=== PATIENT | female | born 1975 | race Caucasian/White ===

== ENCOUNTER 2016-10-13 17:12 | Emergency (ER) | payer OTHER ==
[~2016-10-13] VITALS: Ht 154.9 cm; Wt 70.0 kg
[2016-10-13 17:13] VITALS: BP 143/81; PULSE 84; RESP 16; TEMP 98.1; O2SAT 99
[2016-10-13] MEDS ORDERED: SODIUM CHLOR 0.9% 1000 ML INJ 1,000 ML IV SCH (17:29)
[2016-10-13] MEDS ORDERED: MORPHINE SULFATE 4 MG/ML INJ IV PUSH ONE ×2 (17:30→18:30)
[2016-10-13] MEDS ORDERED: ONDANSETRON HCL 4 MG/2 ML VIAL IVP ONE (17:30)
[2016-10-13] MEDS ORDERED: OMEP40CA2 PO (17:33)
[2016-10-13] MEDS ORDERED: CYCL1TAB29 PO (17:33)
[2016-10-13] MEDS ORDERED: LOSA100T PO (17:33)
[2016-10-13 18:11] LABS: AUTOMATED NEUTROPHIL # 2.7 TH/MM3 (1.8-7.7); BASOPHIL % 0.6 % (0.0-2.0); EOSINOPHIL # 0.1 TH/MM3 (0-0.4); HEMATOCRIT 36.8 % (35.0-46.0); HEMO FLAGS DIFF FINAL; LYMPH % 40.6 % (9.0-44.0); LYMPHOCYTE # 2.2 TH/MM3 (1.0-4.8); MEAN CELL VOLUME 91.9 FL (80.0-100.0); MEAN CORPUSCULAR HEMOGLOBIN 31.2 PG (27.0-34.0); MONO % 5.9 % (0.0-8.0); NEUT % 50.9 % (16.0-70.0); PLATELET COUNT 186 TH/MM3 (150-450); RED CELL DISTRIBUTION WIDTH 12.9 % (11.6-17.2); WHITE BLOOD COUNT 5.3 TH/MM3 (4.0-11.0)
--- NOTE | 2016-10-13 18:32 | PD ---
HPI Chief Complaint: Abdominal Pain Time Seen by Provider: 18:28 Travel History International Travel<30 days: No Contact w/Intl Traveler<30days: No Traveled to known affect area: No History of Present Illness HPI 41-year-old female that presents to the ED for evaluation of right upper quadrant pain. Per patient she's had that since today. Per patient is severe. Per patient nothing makes it better or worse. Per patient she did have her gallbladder removed about 2 months ago [facility]. She denies any other surgeries. No fevers chills or sweats. No bowel movement or urinary symptoms. She states that she feels nauseous and has vomited. Per patient she also had a syncopal episode of unclear etiology and she hit her head. She denies any other injury. No blood thinner use. She states her pain is sharp and is 7 out of 10. No other medical issues at this time. PFSH Past Medical History Cerebrovascular Accident: Yes (tia) Hypertension: Yes Respiratory: Yes (asthma) Influenza Vaccination: No ?: Not LMP: 09/20/2016 (IUD) Past Surgical History Abdominal Surgery: Yes (GASTRIC BYPASS / PERFORATED ULCER REPAIR) Appendectomy: Yes Cholecystectomy: Yes Ear Surgery: Yes (TUBES PLACED (1979)) Social History Alcohol Use: Yes (OCCASIONALLY) Tobacco Use: Yes Substance Use: No Allergies-Medications (Allergen,Severity, Reaction): Coded Allergies: Avelox (Verified Allergy, Severe, RESPIRATORY DISTRESS, 10/13/16) HMG-CoA Reductase Inhibitors (Verified Allergy, Severe, SEVERE MYALGIA, ) Nonsteroidal Anti-Inflammatory Agts (Verified Allergy, Severe, 10/13/16) Tetanus Toxoid (Verified Allergy, Severe, SYNCOPE / RESPIRATORY, 10/13/16) Tramadol (Verified Allergy, Severe, 10/13/16) Reported Meds & Prescriptions Reported Meds & Active Scripts Active Reported Omeprazole 40 Mg Cap 40 Mg PO BID Flexeril (Cyclobenzaprine HCl) 10 Mg Tab 10 Mg PO BID Losartan (Losartan Potassium) 100 Mg Tab 100 Mg PO DAILY Review of Systems Except as stated in HPI: all other systems reviewed are Neg Physical Exam Narrative GENERAL: SKIN: Warm and dry. HEAD: Atraumatic. Normocephalic. EYES: Pupils equal and round. No scleral icterus. No injection or drainage. ENT: No nasal bleeding or discharge. Mucous membranes pink and moist. Tongue is midline. No uvula deviation. NECK: Trachea midline. No JVD. CARDIOVASCULAR: Regular rate and rhythm. No murmurs, S3, S4. RESPIRATORY: No accessory muscle use. Clear to auscultation. Breath sounds equal bilaterally. GASTROINTESTINAL: Abdomen soft, tender to palpation on the right upper quadrant , nondistended. Hepatic and splenic margins not palpable. MUSCULOSKELETAL: Extremities without clubbing, cyanosis, or edema. No obvious deformities. Full range of motion of the upper and lower extremities bilaterally. 2+ pulses bilaterally. NEUROLOGICAL: Awake and alert. No obvious cranial nerve deficits. Motor grossly within normal limits. Five out of 5 muscle strength in the arms and legs. Normal speech. PSYCHIATRIC: Appropriate mood and affect; insight and judgment normal. Data Data Last Documented VS Vital Signs Date Time Temp Pulse Resp B/P Pulse Ox O2 Delivery O2 Flow Rate FiO2 10/13/16 18:47 77 16 138/82 100 Room Air 10/13/16 17:13 98.1 Orders Complete Blood Count With Diff (10/13/16 17:29) Comprehensive Metabolic Panel (10/13/16 17:29) Lipase (10/13/16 17:29) Lactic Acid (10/13/16 17:29) Urinalysis - C+S If Indicated (10/13/16 17:29) Ct Abd/Pel W Iv Contrast(Rout) (10/13/16 17:29) Iv Access Insert/Monitor (10/13/16 17:29) Ecg Monitoring (10/13/16 17:29) Oximetry (10/13/16 17:29) Morphine Inj (Morphine Inj) (10/13/16 17:30) Ondansetron Inj (Zofran Inj) (10/13/16 17:30) Sodium Chlor 0.9% 1000 Ml Inj (Ns 1000 M (10/13/16 17:29) Ct Brain W/O Iv Contrast(Rout) (10/13/16 ) Electrocardiogram (10/13/16 ) Morphine Inj (Morphine Inj) (10/13/16 18:30) Iohexol 350 Inj (Omnipaque 350 Inj) (10/13/16 19:42) Labs Laboratory Tests Test 10/13/16 17:36 White Blood Count 5.3 TH/MM3 Red Blood Count 4.00 MIL/MM3 Hemoglobin 12.5 GM/DL Hematocrit 36.8 % Mean Corpuscular Volume 91.9 FL Mean Corpuscular Hemoglobin 31.2 PG Mean Corpuscular Hemoglobin 34.0 % Concent Red Cell Distribution Width 12.9 % Platelet Count 186 TH/MM3 Mean Platelet Volume 9.0 FL Neutrophils (%) (Auto) 50.9 % Lymphocytes (%) (Auto) 40.6 % Monocytes (%) (Auto) 5.9 % Eosinophils (%) (Auto) 2.0 % Basophils (%) (Auto) 0.6 % Neutrophils # (Auto) 2.7 TH/MM3 Lymphocytes # (Auto) 2.2 TH/MM3 Monocytes # (Auto) 0.3 TH/MM3 Eosinophils # (Auto) 0.1 TH/MM3 Basophils # (Auto) 0.0 TH/MM3 CBC Comment DIFF FINAL Differential Comment Sodium Level 139 MEQ/L Potassium Level 3.9 MEQ/L Chloride Level 106 MEQ/L Carbon Dioxide Level 23.9 MEQ/L Anion Gap 9 MEQ/L Blood Urea Nitrogen 13 MG/DL Creatinine 0.71 MG/DL Estimat Glomerular Filtration 90 ML/MIN Rate Random Glucose 103 MG/DL Lactic Acid Level 1.8 mmol/L Calcium Level 7.6 MG/DL Total Bilirubin 0.3 MG/DL Aspartate Amino Transf 22 U/L (AST/SGOT) Alanine Aminotransferase 30 U/L (ALT/SGPT) Alkaline Phosphatase 96 U/L Total Protein 6.2 GM/DL Albumin 3.5 GM/DL Lipase 110 U/L MDM Medical Decision Making Medical Screen Exam Complete: Yes Emergency Medical Condition: Yes Medical Record Reviewed: Yes Interpretation(s) CBC & BMP Diagram 10/13/16 17:36 LFTs and lipase within normal limits. Last Impressions Abdomen/Pelvis CT 10/13/16 1729 Signed Impressions: Service Date/Time: Thursday, October 13, 2016 19:24 - CONCLUSION: No acute findings. Small hiatus hernia and evidence of prior gastric surgery. Cedrick Reid MD Head CT 10/13/16 0000 Signed Impressions: Service Date/Time: Thursday, October 13, 2016 19:19 - CONCLUSION: Negative noncontrast CT brain. Cedrick Reid MD Differential Diagnosis Abdominal pain versus right upper quadrant pain versus obstruction versus syncope versus head injury versus gastritis versus gastritis versus pancreatitis Narrative Course 41-year-old female that presents to the ED for eval a upper quadrant pain and syncope. Patient was properly examined and was found to have signs and symptoms of unclear etiology at this time. Labs and imaging were ordered. Patient was given IV pain meds. Labs and imaging showed negative for acute disease. My attending Dr. Olivares evaluated the patient with me and recommends that if everything comes back negative patient can be safely discharged home with pain medication and follow-up with his doctor. Patient was rib and does feel improved. Labs and imaging were essentially unremarkable. Told to follow with GI doctor. See ED worsening symptoms. Diagnosis Primary Impression: RUQ abdominal pain Patient Instructions: General Instructions, Narcotic given in the ED Additional Instructions: Take medications as prescribed. Follow-up with PCP. See ED for any worsening symptoms. Do not drink or drive while taking pain medication. Apply ice or heat as needed for pain Med/Other Pt SpecificInfo: Prescription(s) given Scripts Ondansetron (Zofran)4 Mg Tab4 Mg PO Q6HR PRN (NAUSEA OR VOMITING) #20 TAB Prov:Chuy Olivares MD 10/13/16 Hydrocodone-Acetaminophen (Lortab)10-325 Mg Tab1 Tab PO Q6H PRN (PAIN) #20 TAB Ref 0 Prov:Chuy Olivares MD 10/13/16 Disposition: 01 DISCHARGE HOME Condition: Stable Wenceslao Cruz Oct 13, 2016 18:32
[2016-10-13 18:34] LABS: ALT (GPT) 30 U/L (10-53)
[2016-10-13 18:37] LABS: ALKALINE PHOSPHATASE 96 U/L (45-117); TOTAL BILIRUBIN ADULT 0.3 MG/DL (0.2-1.0)
--- NOTE | 2016-10-13 18:38 | PD ---
Data Data Last Documented VS Vital Signs Date Time Temp Pulse Resp B/P Pulse Ox O2 Delivery O2 Flow Rate FiO2 10/13/16 17:13 98.1 84 16 143/81 99 Orders Complete Blood Count With Diff (10/13/16 17:29) Comprehensive Metabolic Panel (10/13/16 17:29) Lipase (10/13/16 17:29) Lactic Acid (10/13/16 17:29) Urinalysis - C+S If Indicated (10/13/16 17:29) Ct Abd/Pel W Iv Contrast(Rout) (10/13/16 17:29) Iv Access Insert/Monitor (10/13/16 17:29) Ecg Monitoring (10/13/16 17:29) Oximetry (10/13/16 17:29) Morphine Inj (Morphine Inj) (10/13/16 17:30) Ondansetron Inj (Zofran Inj) (10/13/16 17:30) Sodium Chlor 0.9% 1000 Ml Inj (Ns 1000 M (10/13/16 17:29) Ct Brain W/O Iv Contrast(Rout) (10/13/16 ) Electrocardiogram (10/13/16 ) Morphine Inj (Morphine Inj) (10/13/16 18:30) Labs Laboratory Tests Test 10/13/16 17:36 White Blood Count 5.3 TH/MM3 Red Blood Count 4.00 MIL/MM3 Hemoglobin 12.5 GM/DL Hematocrit 36.8 % Mean Corpuscular Volume 91.9 FL Mean Corpuscular Hemoglobin 31.2 PG Mean Corpuscular Hemoglobin 34.0 % Concent Red Cell Distribution Width 12.9 % Platelet Count 186 TH/MM3 Mean Platelet Volume 9.0 FL Neutrophils (%) (Auto) 50.9 % Lymphocytes (%) (Auto) 40.6 % Monocytes (%) (Auto) 5.9 % Eosinophils (%) (Auto) 2.0 % Basophils (%) (Auto) 0.6 % Neutrophils # (Auto) 2.7 TH/MM3 Lymphocytes # (Auto) 2.2 TH/MM3 Monocytes # (Auto) 0.3 TH/MM3 Eosinophils # (Auto) 0.1 TH/MM3 Basophils # (Auto) 0.0 TH/MM3 CBC Comment DIFF FINAL Differential Comment Alanine Aminotransferase 30 U/L (ALT/SGPT) [facility] Supervised Visit with RAMON: Yes Narrative Course The history, exam, and medical decision-making in the associated mid-level provider note were completed with my assistance. I reviewed and agree with the findings presented. I attest that I had a [id number] encounter with the patient on the same day, and personally performed and documented my assessment and findings in the medical record. *My assessment and Findings: 41 year-old woman history of chronic right upper quadrant abdominal pain. Status post cholecystectomy 2 months ago for sounds like biliary dyskinesia. 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 The pain she has now is similar to pain that she had prior to having her cholecystectomy. She had an ultrasound done at week or so ago. As far she knows it was normal. She is following up with her surgeon because she still is having ongoing pain issues. We'll get a CT scan to make sure she is not in any evidence of abscess or complication from the procedure but I think this is unlikely. Patient likely with acute on chronic ongoing abdominal pain similar to before her surgery. Chuy lOivares MD Oct 13, 2016 18:38
[2016-10-13 18:47] VITALS: BP 138/82; PULSE 77; RESP 16; O2SAT 100
[2016-10-13 18:49] LABS: ANION GAP 9 MEQ/L (5-15); AST (GOT) 22 U/L (15-37); BICARBONATE 23.9 MEQ/L (21.0-32.0); BLOOD UREA NITROGEN 13 MG/DL (7-18); CHLORIDE 106 MEQ/L (98-107); GLOMERULAR FILTRATION RATE 90 ML/MIN (>89); POTASSIUM 3.9 MEQ/L (3.5-5.1); SODIUM (NA) 139 MEQ/L (136-145)
--- NOTE | 2016-10-13 19:40 | RADRPT ---
EXAM DATE/TIME: 10/13/2016 19:19 [facility] COMPARISON: No previous studies available for comparison. INDICATIONS : Fell hit head,syncopal episode RADIATION DOSE: 38.16 CTDIvol (mGy) MEDICAL HISTORY : Hypertension. Ulcers. SURGICAL HISTORY : Gastric bypass. Cholecystectomy.Ulcer repair ENCOUNTER: Initial ACUITY: 2 days PAIN SCALE: 7/10 LOCATION: cranial TECHNIQUE: Multiple contiguous axial images were obtained of the head. Using automated exposure control and adj ustment of the mA and/or kV according to patient size, radiation dose was kept as low as reasonably a chievable to obtain optimal diagnostic quality images. DICOM format image data is available electro nically for review and comparison. FINDINGS: CEREBRUM: The ventricles are normal for age. No evidence of midline shift, mass lesion, hemorrhage or acute in farction. No extra-axial fluid collections are seen. POSTERIOR FOSSA: The cerebellum and brainstem are intact. The 4th ventricle is midline. The cerebellopontine angle i s unremarkable. EXTRACRANIAL: The visualized portion of the orbits is intact. SKULL: The calvaria is intact. No evidence of skull fracture. CONCLUSION: Negative noncontrast CT brain. Cedrick Reid MD on October 13, 2016 at 19:37 Board Certified Radiologist. This report was verified electronically.
[2016-10-13] MEDS ORDERED: IOHEXOL 350 MG/ML 10 ML VIAL (for RAD DIAG) IV ONE (19:42)
--- NOTE | 2016-10-13 19:55 | RADRPT ---
EXAM DATE/TIME: 10/13/2016 19:24 [facility] COMPARISON: No previous studies available for comparison. INDICATIONS : Right upper abdomen pain IV CONTRAST: 81 cc Omnipaque 350 (iohexol) IV ORAL CONTRAST: No oral contrast ingested. RADIATION DOSE: 10.63 CTDIvol (mGy) MEDICAL HISTORY : Hypertension. Ulcers. SURGICAL HISTORY : Gastric bypass. Cholecystectomy.Ulcer repair ENCOUNTER: Initial ACUITY: 2 days PAIN SCALE: 7/10 LOCATION: Right Abdomen TECHNIQUE: Volumetric scanning of the abdomen and pelvis was performed. Using automated exposure control and ad justment of the mA and/or kV according to patient size, radiation dose was kept as low as reasonably achievable to obtain optimal diagnostic quality images. DICOM format image data is available electro nically for review and comparison. FINDINGS: LOWER LUNGS: The visualized lower lungs are clear. LIVER: Homogeneous density without lesion. There is no dilation of the biliary tree. Cholecystectomy. SPLEEN: Normal size without lesion. PANCREAS: Within normal limits. KIDNEYS: Normal in size and shape. There is no mass, stone or hydronephrosis. ADRENAL GLANDS: Within normal limits. VASCULAR: There is no aortic aneurysm. BOWEL/MESENTERY: Anastomosis suture in the epigastric region from prior gastric surgery. Small hiatus hernia. No dil ated loops of small or large bowel. Gas is seen diffusely throughout loops of small and large bowel. No evidence of extraluminal gas. No evidence of free fluid. ABDOMINAL WALL: Within normal limits. RETROPERITONEUM: There is no lymphadenopathy. BLADDER: No wall thickening or mass. REPRODUCTIVE: Anteverted uterus. T-shaped IUD. INGUINAL: There is no lymphadenopathy or hernia. MUSCULOSKELETAL: Within normal limits for patient age. CONCLUSION: No acute findings. Small hiatus hernia and evidence of prior gastric surgery. Cedrick Reid MD on October 13, 2016 at 19:50 Board Certified Radiologist. This report was verified electronically.
[2016-10-13] MEDS ORDERED: HYDR-3535 PO ×2 (20:22→20:26)
[2016-10-13] MEDS ORDERED: ZOFR4TAB PO (20:22)
--- NOTE | 2016-10-14 12:24 | EKG ---
Date Performed: 10/13/2016 Time Performed: 18:08:20 PTAGE: 41 years EKG: Sinus rhythm NORMAL ECG NO PREVIOUS TRACING DOCTOR: Chance Obrien Interpretating Date/Time 10/14/2016 12:23:40
== END 2016-10-13 20:35 | disposition home or self-care (01) ==
LOC: NEPC 17:12
DX: R10.11 Right upper quadrant pain (principal); I10 Essential (primary) hypertension; Z98.84 Bariatric surgery status; Z86.73 Personal history of transient ischemic attack (TIA), and cerebral infarction without residual deficits
CPT/HCPCS: 70450; 74177; 80053; 83605; 83690; 85025; 93005; 96361; 96374; 96375; 96376; 99285; J2270; J2405; J7030; Q9967